=== PATIENT | female | born 1990 | race Caucasian/White ===

== ENCOUNTER 2018-06-06 23:26 | Inpatient (IN) | payer BC ==
[2018-06-06] MEDS: Lactated Ringers 1,000 ML IV SCH (23:20)
[2018-06-06] MEDS ORDERED: Sodium Chloride 0.9% 2.5 ML Syringe FLUSH PRN ×2 (23:36→23:39)
[2018-06-06] MEDS ORDERED: Sodium Chloride 0.9% 10 ML Syringe FLUSH PRN ×2 (23:36→23:39)
[2018-06-06] MEDS ORDERED: Ondansetron 4 MG/2 ML SDV IVPUSH PRN (23:39)
[2018-06-06] MEDS ORDERED: Citric Acid/Sodium Citrate Solution 30 ML Cup PO ONE (23:39)
[2018-06-06] MEDS ORDERED: ceFAZolin 2 GM in Premix Bag 1 BAG IV ONE (23:39)
--- NOTE | 2018-06-06 23:41 | PCM.PREANE ---
Preanesthetic Assessment - Anesthesia/Transfusion/Family Hx Anesthesia History: Prior Anesthesia Without Reaction Family History of Anesthesia Reaction: No - Review of Systems General: No Symptoms Pulmonary: No Symptoms Cardiovascular: No Symptoms Gastrointestinal: No Symptoms Neurological: No Symptoms Other: Reports: None - Physical Assessment ASA Class: 2E Mental Status: Alert & Oriented x3 Airway Class: Mallampati = 2 Dentition: Reports: Normal Dentition Thyro-Mental Finger Breadths: 3 Mouth Opening Finger Breadths: 3 ROM/Head Extension: Full Lungs: Clear to Auscultation, Normal Respiratory Effort Cardiovascular: Regular Rate, Regular Rhythm - Allergies Allergies/Adverse Reactions: Allergies Allergy/AdvReac Type Severity Reaction Status Date / Time No Known Allergies Allergy Verified 07/22/14 17:15 - Acknowledgements Anesthesia Type Planned: Spinal (with Duramorph) Pt an Appropriate Candidate for the Planned Anesthesia: Yes Alternatives and Risks of Anesthesia Discussed w Pt/Guardian: Yes Pt/Guardian Understands and Agrees with Anesthesia Plan: Yes PreAnesthesia Questionnaire HEENT History: Reports: None Cardiovascular History: Reports: None Respiratory History: Reports: None Gastrointestinal History: Reports: GERD Genitourinary History: Reports: None 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: : 3 Para: 2 LMP (Approximate): Musculoskeletal History: Reports: None Neurological History: Reports: None Psychiatric History: Reports: None Hematologic History: Reports: None Immunologic History: Reports: None Oncologic (Cancer) History: Reports: None Dermatologic History: Reports: None - Infectious Disease History Infectious Disease History: Reports: None - Past Surgical History Female Surgical History: Reports: Section (x2 previous) - HOME MEDS Home Medications: Home Meds Acetaminophen/oxyCODONE [Percocet 325-5 MG] 1 tab PO Q4H PRN #1 tablet 07/25/14 [Rx] Docusate Sodium [Colace] 100 mg PO BID #1 cap 07/25/14 [Rx] Lanolin [Lansinoh HPA] 1 g TOP ASDIRECTED PRN #1 crm 07/25/14 [Rx] - CURRENT (IN HOUSE) MEDS Current Meds: Current Medications Lactated Ringer's (Ringers, Lactated) 1,000 mls @ 500 mls/hr IV BOLUS SHRUTI Sodium Chloride (Saline Flush) 10 ml FLUSH ASDIRECTED PRN PRN Reason: Keep Vein Open Sodium Chloride (Saline Flush) 2.5 ml FLUSH ASDIRECTED PRN PRN Reason: Keep Vein Open
[2018-06-06] MEDS ORDERED: Oxytocin/0.9 % Sodium Chloride 30 UNIT/500 ML BAG IV SCH (23:45)
[2018-06-06] MEDS ORDERED: Lactated Ringers 1,000 ML IV SCH (23:45)
[2018-06-07] MEDS: Lactated Ringers 1,000 ML IV SCH (00:12)
[2018-06-07] MEDS ORDERED: Nalbuphine 10 MG/1 ML Vial IVPUSH PRN (03:04)
[2018-06-07] MEDS ORDERED: diphenhydrAMINE 50 MG/ML SDV IVPUSH PRN (03:04)
[2018-06-07] MEDS ORDERED: Naloxone 0.4 MG/ML Syringe IVPUSH PRN (03:04)
--- NOTE | 2018-06-07 03:22 | PCM.POSTAN ---
POST ANESTHESIA ASSESSMENT - MENTAL STATUS Mental Status: Alert, Oriented - RESPIRATORY Respiratory Status: Respiratory Rate WNL, Airway Patent, O2 Saturation Stable - CARDIOVASCULAR CV Status: Pulse Rate WNL, Blood Pressure Stable - GASTROINTESTINAL GI Status: No Symptoms - POST OP HYDRATION Hydration Status: Adequate & Stable
--- NOTE | 2018-06-07 04:13 | PCM.DEL ---
L & D Note - General Info Date of Service: 06/07/18 Mother's Due Date: 06/16/18 - Delivery Note Delivery Outcome: Livebirth Delivery Method: Repeat Presentation: Left Occiput Transverse (LOT) Nuchal Cord: Present Anesthesia Type: Spinal Episiotomy Type: None Laceration: None Placenta: Intact Cord: 3 Vessels Estimated Blood Loss: 1,000 Resuscitation Needed: Yes Score 1 min: 5 Score 5 min: 7 Delivery Comments (Free Text/Narrative):: Live male delivered at 132am 4/7 weight 3930g - General Info Date of Service: 06/07/18 - Patient Data Vitals - Most Recent: Last Vital Signs Temp 36.7 C 06/07/18 02:57 Pulse 74 06/07/18 03:47 Resp 12 06/07/18 03:47 BP 117/69 06/07/18 03:47 Pulse Ox 97 06/07/18 03:47 Weight - Most Recent: 108.409 kg I&O - Last 24 Hours: Intake & Output 06/06/18 06/06/18 06/07/18 14:59 22:59 06:59 Intake Total 1800 Output Total 1050 Balance 750 Lab Results Last 24 Hours: Laboratory Results - last 24 hr 06/06/18 06/06/18 Range/Units 23:50 23:50 WBC 15.56 H (4.0-11.0) K/uL RBC 4.35 (4.30-5.90) M/uL Hgb 13.1 (12.0-16.0) g/dL Hct 37.0 (36.0-46.0) % MCV 85.1 (80.0-98.0) fL MCH 30.1 (27.0-32.0) pg MCHC 35.4 (31.0-37.0) g/dL RDW Std Deviation 38.5 (28.0-62.0) fl RDW Coeff of Dinorah 13 (11.0-15.0) % Plt Count 234 (150-400) K/uL MPV 9.90 (7.40-12.00) fL Nucleated RBC % 0.0 /100WBC Nucleated RBCs # 0 K/uL Blood Type A POSITIVE Antibody Screen NEGATIVE Med Orders - Current: Current Medications Diphenhydramine HCl (Benadryl) 25 mg IVPUSH Q4H PRN PRN Reason: Itching Stop: 06/08/18 03:05 Lactated Ringer's (Ringers, Lactated) 1,000 mls @ 500 mls/hr IV BOLUS SHRUTI Last Admin: 06/07/18 00:12 Dose: 500 mls/hr Lactated Ringer's (Ringers, Lactated) 1,000 mls @ 500 mls/hr IV BOLUS SHRUTI Oxytocin/Sodium Chloride (Oxytocin 30 Unit/500 Ml-Ns) 30 unit in 500 mls @ 250 mls/hr IV TITRATE SHRUTI Nalbuphine HCl (Nubain) 5 mg IVPUSH Q3H PRN PRN Reason: Pruritis Stop: 06/08/18 03:05 Naloxone HCl (Narcan) 0.1 mg IVPUSH ONETIME PRN PRN Reason: Respiratory Depression Stop: 06/08/18 03:05 Ondansetron HCl (Zofran) 4 mg IVPUSH Q4H PRN PRN Reason: Nausea/Vomiting Sodium Chloride (Saline Flush) 10 ml FLUSH ASDIRECTED PRN PRN Reason: Keep Vein Open Sodium Chloride (Saline Flush) 2.5 ml FLUSH ASDIRECTED PRN PRN Reason: Keep Vein Open Discontinued Medications Citric Acid/Sodium Citrate (Bicitra Solution) 30 ml PO ONETIME ONE Stop: 06/06/18 23:40 Cefazolin Sodium/Dextrose 2 gm (/ Premix) 50 mls @ 100 mls/hr IV ONETIME ONE Stop: 06/07/18 00:08 Sodium Chloride (Saline Flush) 10 ml FLUSH ASDIRECTED PRN PRN Reason: Keep Vein Open Sodium Chloride (Saline Flush) 2.5 ml FLUSH ASDIRECTED PRN PRN Reason: Keep Vein Open - Problem List & Annotations (1) delivery delivered SNOMED Code(s): 281914362 Code(s): O82 - ENCOUNTER FOR DELIVERY WITHOUT INDICATION Status: Acute Current Visit: No - Problem List Review Problem List Initiated/Reviewed/Updated: Yes - My Orders Last 24 Hours: My Active Orders 06/06/18 23:39 Patient Status [ADT] Routine Up ad Umm [RC] ASDIRECTED Vital Signs [RC] PER UNIT ROUTINE Ondansetron [Zofran] 4 mg IVPUSH Q4H PRN Peripheral IV Insertion Adult [OM.PC] Routine Schedule Procedure [COMM] Per Unit Routine Resuscitation Status Routine 06/06/18 23:40 Notify Provider Vital Signs [RC] PRN 06/06/18 23:45 Lactated Ringers [Ringers, Lactated] 1,000 ml IV BOLUS Oxytocin/0.9 % Sodium Chloride [Oxytocin 30 Unit/500 ML-NS] 30 unit in 500 ml IV TITRATE
[2018-06-07] MEDS ORDERED: Bisacodyl 10 MG Supp RECTAL PRN (04:17)
[2018-06-07] MEDS ORDERED: Acetaminophen/oxyCODONE 325-5 MG Tab PO PRN (04:17)
[2018-06-07] MEDS ORDERED: Ondansetron 4 MG/2 ML SDV IVPUSH PRN (04:17)
[2018-06-07] MEDS ORDERED: Lanolin 100% Cream 7 GM Tube TOP PRN (04:17)
--- NOTE | 2018-06-07 04:17 | PCM.OPNOTE ---
- General Post-Op/Procedure Note Date of Surgery/Procedure: 06/07/18 Operative Procedure(s): Tertiary lower segment Findings: Live male delivered at 132am, via vacuum , 4/7 . weight 3930 gram Dense adhesion between fascia , bladder and uterus . Pre Op Diagnosis: Previous @ 38w5d in labor Post-Op Diagnosis: same Anesthesia Technique: Spinal Primary Surgeon: Noheim Ford Fluid Replacement, Intraop: 3,000 Output, Urine Amount: 450 EBL in mLs: 1,000 Complications: None Condition: Good Free Text/Narrative:: Intake & Output 06/06/18 06/06/18 06/07/18 14:59 22:59 06:59 Intake Total 1800 Output Total 1050 Balance 750
[2018-06-07] MEDS ORDERED: Lactated Ringers 1,000 ML IV SCH (04:30)
[2018-06-07] MEDS: Ketorolac 30 MG/ML SDV IVPUSH SCH ×4 (05:03→23:33)
[2018-06-07] MEDS: diphenhydrAMINE 50 MG/ML SDV IVPUSH PRN ×2 (05:12→18:30)
--- NOTE | 2018-06-07 07:13 | PCM48HPAN ---
Post Anesthesia Note - EVALUATION WITHIN 48HRS OF ANESTHETIC Vital Signs in Normal Range: Yes Patient Participated in Evaluation: Yes Respiratory Function Stable: Yes Airway Patent: Yes Cardiovascular Function Stable: Yes Hydration Status Stable: Yes Pain Control Satisfactory: Yes Nausea and Vomiting Control Satisfactory: Yes Mental Status Recovered: Yes Resp Rate: 16
[2018-06-07] MEDS: Docusate Sodium 100 MG Cap PO SCH ×2 (14:11→21:16)
[2018-06-08] MEDS: Ketorolac 30 MG/ML SDV IVPUSH SCH (06:13)
--- NOTE | 2018-06-08 07:53 | PCM.PNPP ---
- General Info Date of Service: 06/08/18 Functional Status: Reports: Pain Controlled, Tolerating Diet, Ambulating. Denies: Urinating (Ward removed this am) - Review of Systems General: Denies: Fever, Malaise HEENT: Denies: Headaches Pulmonary: Denies: Shortness of Breath, Pleuritic Chest Pain Cardiovascular: Denies: Chest Pain, Palpitations, Dyspnea on Exertion Gastrointestinal: Denies: Abdominal Pain Genitourinary: Denies: Flank Pain - General Info Date of Service: 06/08/18 - Patient Data Vital Signs - Most Recent: Last Vital Signs Temp 36.3 C 06/08/18 04:12 Pulse 93 06/08/18 04:12 Resp 18 06/08/18 04:12 BP 134/67 06/08/18 04:12 Pulse Ox 96 06/08/18 04:12 Weight - Most Recent: 239 lb 0.015 oz Lab Results - Last 24 Hours: Laboratory Results - last 24 hr 06/08/18 Range/Units 05:05 Hgb 10.4 L (12.0-16.0) g/dL Hct 31.0 L (36.0-46.0) % Med Orders - Current: Current Medications Bisacodyl (Dulcolax) 10 mg RECTAL ONETIME PRN PRN Reason: Constipation Diphenhydramine HCl (Benadryl) 25 mg IVPUSH Q6H PRN PRN Reason: Itching or Nausea Last Admin: 06/07/18 18:30 Dose: 25 mg Docusate Sodium (Colace) 100 mg PO BID SHRUTI Last Admin: 06/07/18 21:16 Dose: 100 mg Emollient Ointment (Lansinoh Hpa) 0 gm TOP ASDIRECTED PRN PRN Reason: Sore Nipples Lactated Ringer's (Ringers, Lactated) 1,000 mls @ 500 mls/hr IV BOLUS SHRUTI Last Admin: 06/07/18 00:12 Dose: 500 mls/hr Lactated Ringer's (Ringers, Lactated) 1,000 mls @ 500 mls/hr IV BOLUS SHRUTI Oxytocin/Sodium Chloride (Oxytocin 30 Unit/500 Ml-Ns) 30 unit in 500 mls @ 250 mls/hr IV TITRATE SHRUTI Lactated Ringer's (Ringers, Lactated) 1,000 mls @ 125 mls/hr IV ASDIRECTED SHRUTI Ibuprofen (Motrin) 800 mg PO Q8H PRN PRN Reason: mild pain or fever Ondansetron HCl (Zofran) 4 mg IVPUSH Q4H PRN PRN Reason: Nausea/Vomiting Ondansetron HCl (Zofran) 4 mg IVPUSH Q4H PRN PRN Reason: Nausea/Vomiting Last Admin: 06/07/18 15:16 Dose: 4 mg Oxycodone/Acetaminophen (Percocet 325-5 Mg) 1 tab PO Q4H PRN PRN Reason: Pain (moderate 4-6) Oxycodone/Acetaminophen (Percocet 325-5 Mg) 2 tab PO Q4H PRN PRN Reason: Pain (moderate 4-6) Sodium Chloride (Saline Flush) 10 ml FLUSH ASDIRECTED PRN PRN Reason: Keep Vein Open Sodium Chloride (Saline Flush) 2.5 ml FLUSH ASDIRECTED PRN PRN Reason: Keep Vein Open Discontinued Medications Citric Acid/Sodium Citrate (Bicitra Solution) 30 ml PO ONETIME ONE Stop: 06/06/18 23:40 Diphenhydramine HCl (Benadryl) 25 mg IVPUSH Q4H PRN PRN Reason: Itching Stop: 06/08/18 03:05 Cefazolin Sodium/Dextrose 2 gm (/ Premix) 50 mls @ 100 mls/hr IV ONETIME ONE Stop: 06/07/18 00:08 Ketorolac Tromethamine (Toradol) 30 mg IVPUSH Q6H SHRUTI Stop: 06/08/18 04:31 Last Admin: 06/08/18 06:13 Dose: 30 mg Nalbuphine HCl (Nubain) 5 mg IVPUSH Q3H PRN PRN Reason: Pruritis Stop: 06/08/18 03:05 Last Admin: 06/07/18 11:16 Dose: 5 mg Naloxone HCl (Narcan) 0.1 mg IVPUSH ONETIME PRN PRN Reason: Respiratory Depression Stop: 06/08/18 03:05 Sodium Chloride (Saline Flush) 10 ml FLUSH ASDIRECTED PRN PRN Reason: Keep Vein Open Sodium Chloride (Saline Flush) 2.5 ml FLUSH ASDIRECTED PRN PRN Reason: Keep Vein Open - Infant Interaction Disposition, : Wallace to Nursery Infant Feeding: Continues to Breastfeed Support Person: - Recovery Exam Fundal Tone: Firm Fundal Level: 1 Fingerbreadths Below Umbilicus Fundal Placement: Midline Lochia Amount: Small Lochia Color: Rubra/Red Perineum Description: Intact, Minimal Bruising/Swelling Episiotomy/Laceration: None - Exam General: Alert Lungs: Clear to Auscultation, Normal Respiratory Effort Cardiovascular: Regular Rate, Regular Rhythm GI/Abdominal Exam: Normal Bowel Sounds, Soft, Non-Tender Extremities: Non-Tender, Pedal Edema Skin: Warm Wound/Incisions: Dressing Dry and Intact Psy/Mental Status: Alert, Normal Affect, Normal Mood - Problem List & Annotations (1) delivery delivered SNOMED Code(s): 550051250 Code(s): O82 - ENCOUNTER FOR DELIVERY WITHOUT INDICATION Status: Acute Current Visit: No - Problem List Review Problem List Initiated/Reviewed/Updated: Yes - Assessment Assessment:: POD#1 s/p RLTCS, doing well. Stable and afebrile - Plan Plan:: Continue current care Aim for discharge tomorrow
[2018-06-08] MEDS: Docusate Sodium 100 MG Cap PO SCH ×2 (09:00→20:01)
[2018-06-08] MEDS: Ibuprofen 800 MG Tab PO PRN (15:13)
[2018-06-08] MEDS: Acetaminophen/oxyCODONE 325-5 MG Tab PO PRN ×2 (15:14→19:51)
[2018-06-09] MEDS: Ibuprofen 800 MG Tab PO PRN ×2 (02:44→12:32)
[2018-06-09] MEDS: Acetaminophen/oxyCODONE 325-5 MG Tab PO PRN ×3 (02:44→12:33)
[2018-06-09 07:38] VITALS: BP 133/68
[2018-06-09] MEDS: Docusate Sodium 100 MG Cap PO SCH (08:26)
--- NOTE | 2018-06-09 09:16 | OR ---
SURGEON: NEIL WOLF DATE OF PROCEDURE: 06/07/2018 PREOPERATIVE DIAGNOSES: A 28-year-old 3, para 0, 0, 2, previous section x2, in labor for tertiary section. POSTOPERATIVE DIAGNOSES: A 28-year-old 3, para 0, 0, 2, previous section x2, in labor for tertiary section. PROCEDURE: Tertiary low transverse section. ESTIMATED BLOOD LOSS: 1000 IV FLUIDS: 3000 URINE OUTPUT: 450. FINDINGS: Severe dense adhesion between the rectus muscle to the fascia and the uterus. Live male , delivered at 0132 am. scores were 4 and 7. Weight was 3930 g. Thick meconium was noted. The was delivered with vacuum. BRIEF HISTORY ABOUT THE PATIENT: She is a patient who came in at 39 weeks and 5 days with contractions. She was examined. She was noted to be 1, 60, -2. She also had some bloody show. The patient was then counselled for for history of previous in active labor. She understood the risks, benefits, alternatives, and desired to proceed. DESCRIPTION OF PROCEDURE: The patient was taken to the operating room where spinal anesthesia was performed without difficulty. She was prepared and draped in the dorsal supine position with a leftward tilt. A Pfannenstiel skin incision was made with a scalpel and carried down to the fascia with the Bovie. The fascia was noted to be dense, thick, and was adhered to the underlying rectus muscle/ The fascia was incised and extended laterally, and the fascia was adhered to the rectus muscle, and the plane was not well defined, so gentle sharp dissection was done with the aid of the scalpel to dissect the layers to the peritoneum. . The bladder was stuck to the rectus muscles inferiorly, so we could not separate the plane there, so an attempt was then made to do a muscle-splitting procedure to better visualize the lower uterine segment. Lower uterine segment was then noted, the bladder was , and the bladder flap was then created. A lower uterine incision was made with the aid of the scapel. The uterine incision was extended manually up and downward with the finger and also with the bandage scissors. The was in cephalic position. The head was elevated to the level of the incision, and then there was some difficulty in delivering the head, so vacuum was placed at the flexion point, the baby was then delivered without difficulty, and thick meconium was noted. The cord was clamped and cut. The was handed over to the awaiting ballast inspector. The placenta was then delivered via massage of the uterine fundus. The uterine incision was noted and was repaired in one layer with 0 Vicryl. Then, some oozing points were noted, which were also sutured with 2-0 Vicryl. The rectus muscles were noted to be bleeding, and a continuous stitch was placed. Also, bladder base was noted to be oozing, so Surgicel was also placed. The rectus muscle was then apposed in the midline, and the fascia was then closed with PDS suture. The subcutaneous fat was also closed, and the skin was closed with 3-0 Monocryl on a Duane needle. All instrument and pad counts were correct x3. The patient tolerated the procedure well and was taken to the recovery room in stable condition. GARTH ALFARO /[id number]
--- NOTE | 2018-06-09 10:16 | PCM.PNPP ---
- General Info Date of Service: 06/09/18 Functional Status: Reports: Pain Controlled, Tolerating Diet, Ambulating, Urinating - Review of Systems General: Reports: No Symptoms HEENT: Reports: No Symptoms Pulmonary: Reports: No Symptoms Cardiovascular: Reports: No Symptoms Gastrointestinal: Reports: No Symptoms Genitourinary: Reports: No Symptoms Musculoskeletal: Reports: No Symptoms Skin: Reports: No Symptoms Neurological: Reports: No Symptoms Psychiatric: Reports: Agitation - General Info Date of Service: 06/09/18 - Patient Data Vital Signs - Most Recent: Last Vital Signs Temp 36.6 C 06/09/18 07:05 Pulse 93 06/09/18 07:05 Resp 18 06/09/18 07:05 BP 133/68 06/09/18 07:05 Pulse Ox 98 06/09/18 07:05 Weight - Most Recent: 108.409 kg Med Orders - Current: Current Medications Bisacodyl (Dulcolax) 10 mg RECTAL ONETIME PRN PRN Reason: Constipation Diphenhydramine HCl (Benadryl) 25 mg IVPUSH Q6H PRN PRN Reason: Itching or Nausea Last Admin: 06/07/18 18:30 Dose: 25 mg Docusate Sodium (Colace) 100 mg PO BID SHRUTI Last Admin: 06/09/18 08:26 Dose: 100 mg Emollient Ointment (Lansinoh Hpa) 0 gm TOP ASDIRECTED PRN PRN Reason: Sore Nipples Lactated Ringer's (Ringers, Lactated) 1,000 mls @ 500 mls/hr IV BOLUS SHRUTI Last Admin: 06/07/18 00:12 Dose: 500 mls/hr Lactated Ringer's (Ringers, Lactated) 1,000 mls @ 500 mls/hr IV BOLUS [facility] Oxytocin/Sodium Chloride (Oxytocin 30 Unit/500 Ml-Ns) 30 unit in 500 mls @ 250 mls/hr IV TITRATE SHRUTI Lactated Ringer's (Ringers, Lactated) 1,000 mls @ 125 mls/hr IV ASDIRECTED SHRUTI Ibuprofen (Motrin) 800 mg PO Q8H PRN PRN Reason: mild pain or fever Last Admin: 06/09/18 02:44 Dose: 800 mg Ondansetron HCl (Zofran) 4 mg IVPUSH Q4H PRN PRN Reason: Nausea/Vomiting Ondansetron HCl (Zofran) 4 mg IVPUSH Q4H PRN PRN Reason: Nausea/Vomiting Last Admin: 06/07/18 15:16 Dose: 4 mg Oxycodone/Acetaminophen (Percocet 325-5 Mg) 1 tab PO Q4H PRN PRN Reason: Pain (moderate 4-6) Last Admin: 06/09/18 08:26 Dose: 1 tab Oxycodone/Acetaminophen (Percocet 325-5 Mg) 2 tab PO Q4H PRN PRN Reason: Pain (moderate 4-6) Sodium Chloride (Saline Flush) 10 ml FLUSH ASDIRECTED PRN PRN Reason: Keep Vein Open Sodium Chloride (Saline Flush) 2.5 ml FLUSH ASDIRECTED PRN PRN Reason: Keep Vein Open Discontinued Medications Citric Acid/Sodium Citrate (Bicitra Solution) 30 ml PO ONETIME ONE Stop: 06/06/18 23:40 Diphenhydramine HCl (Benadryl) 25 mg IVPUSH Q4H PRN PRN Reason: Itching Stop: 06/08/18 03:05 Cefazolin Sodium/Dextrose 2 gm (/ Premix) 50 mls @ 100 mls/hr IV ONETIME ONE Stop: 06/07/18 00:08 Ketorolac Tromethamine (Toradol) 30 mg IVPUSH Q6H SHRUTI Stop: 06/08/18 04:31 Last Admin: 06/08/18 06:13 Dose: 30 mg Nalbuphine HCl (Nubain) 5 mg IVPUSH Q3H PRN PRN Reason: Pruritis Stop: 06/08/18 03:05 Last Admin: 06/07/18 11:16 Dose: 5 mg Naloxone HCl (Narcan) 0.1 mg IVPUSH ONETIME PRN PRN Reason: Respiratory Depression Stop: 06/08/18 03:05 Sodium Chloride (Saline Flush) 10 ml FLUSH ASDIRECTED PRN PRN Reason: Keep Vein Open Sodium Chloride (Saline Flush) 2.5 ml FLUSH ASDIRECTED PRN PRN Reason: Keep Vein Open - Infant Interaction Disposition, : to Nursery Feeding: Continues to Breastfeed Support Person: - Recovery Exam Fundal Tone: Firm Fundal Level: 1 Fingerbreadths Below Umbilicus Fundal Placement: Midline Lochia Amount: Small Lochia Color: Rubra/Red Perineum Description: Intact, Minimal Bruising/Swelling Episiotomy/Laceration: None Bladder Status: Nonpalpable, Voiding Urinary Elimination: Voided - Exam General: Alert HEENT: Pupils Equal Neck: Supple Lungs: Clear to Auscultation Cardiovascular: Regular Rate, Regular Rhythm GI/Abdominal Exam: Normal Bowel Sounds Extremities: Normal Inspection Wound/Incisions: Dressing Dry and Intact Neurological: No New Focal Deficit Psy/Mental Status: Alert - Problem List & Annotations (1) delivery delivered SNOMED Code(s): 706357091 Code(s): O82 - ENCOUNTER FOR DELIVERY WITHOUT INDICATION Status: Acute Current Visit: No - Problem List Review Problem List Initiated/Reviewed/Updated: Yes - My Orders Last 24 Hours: My Active Orders 06/08/18 10:30 Ibuprofen [Motrin] 800 mg PO Q8H PRN - Assessment Assessment:: POD#2 s/p RLTCS, doing well. Stable and afebrile - Plan Plan:: Discharge home
== END 2018-06-09 15:15 | disposition home or self-care (01) | DRG 540 ==
LOC: MW.OB 23:26 → OBSVTOIN 23:39 → MW.OB 06-07 12:11
PROVIDERS: ADMIT Obstetrics & Gynecology; ATTEND Obstetrics & Gynecology
PROC: 10D00Z1 Extraction of Products of Conception, Low, Open Approach (ICD-10-PCS; principal; 2018-06-06)
DX: O34.211 Maternal care for low transverse scar from previous cesarean delivery (principal); N85.8 Other specified noninflammatory disorders of uterus; Z3A.39 39 weeks gestation of pregnancy; Z37.0 Single live birth
CPT/HCPCS: 01961; 36415; 59025; 85014; 85018; 85027; 86850; 86900; 86901; A9270-GY; J1200; J1885; J2300; J2405; J7120

== ENCOUNTER 2018-06-22 20:46 | Observation (INO) | payer BC ==
[2018-06-22] MEDS ORDERED: Sodium Chloride 0.9% 2.5 ML Syringe FLUSH PRN (21:33)
[2018-06-22] MEDS ORDERED: Sodium Chloride 0.9% 10 ML Syringe FLUSH PRN (21:33)
--- NOTE | 2018-06-22 21:38 | EDM.PDOC ---
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 Cordero and initially did well and last Tuesday, 8 days ago the wound started opening up and her provider put several stitches in and she is due to have the sutures removed tomorrow. The patient had noticed some drainage and redness from the area and re-presented to the clinic on Tuesday, 3 days ago, and had a wound culture performed which she was notified was positive for strep. She was seen in the clinic on Tuesday and evaluated by the PA and was placed on Keflex which she has completed 2 days of. On Tuesday she did have a temperature of 101 she has not had a fever since that time. The patient said she has noted the persistent redness in the lower abdominal area around the incision but there have been no drainage until tonight at about 6:30 and she was walking in from her car and felt this gush of fluid. It was bloody fluid but it was not bright red and she has had continued drainage since that time. She has pain all throughout the area but has no upper abdominal pain and she's had no fevers since the one time on Tuesday. She's had no nausea or vomiting no diarrhea no shortness of breath or chest pain. She is only having minimal vaginal lochia. The patient is breast-feeding and has had no breast pain or issues with that and the baby is feeding well. She has contacted Dr. Mart who is on-call and was advised to come here. Review of systems: As per history of present illness and below otherwise all systems reviewed and negative. Past medical history: As per history of present illness and as reviewed below otherwise noncontributory. Surgical history: As per history of present illness and as reviewed below otherwise noncontributory. Social history: No reported history of drug or alcohol abuse. Family history: As per history of present illness and as reviewed below otherwise noncontributory. Physical exam: General: Well-developed well-nourished overweight female who is nontoxic and vital signs are noted by me. She is in some distress when she lays perfectly in the supine position and moves slowly due to discomfort. HEENT: Atraumatic, normocephalic, negative for conjunctival pallor or scleral icterus, mucous membranes moist, throat clear, neck supple, nontender, trachea midline. Lungs: Clear to auscultation, breath sounds equal bilaterally, chest nontender. Heart: S1S2, regular rate and rhythm no overt murmurs Abdomen: Soft, nondistended, normoactive bowel sounds Negative for masses or hepatosplenomegaly. The patient has a Pfannenstiel incision and at the midpoint where the patient says the sutures were placed by her provider, there is active draining of serosanguineous darker colored fluid also has a pale Rust component to it. There is surrounding induration and erythema extending upward several centimeters towards the umbilicus as well as inferiorly to a lesser degree. There is induration appreciated in the midline and extending outward and there is discrete tenderness in this region. There is warmth to this area as well. Pelvis: Stable nontender. Genitourinary: Deferred. Rectal: Deferred. Extremities: Atraumatic, negative for cords or calf pain. Neurovascular unremarkable. Neuro: Awake, alert, oriented. Cranial nerves II through XII unremarkable. Cerebellum unremarkable. Motor and sensory unremarkable throughout. Exam nonfocal. Diagnostics: CBC CMP CT scan of the abdomen and pelvis Therapeutics: Saline lock IV fluids morphine 2144: Case was discussed with Dr. Mart who would like a CT scan performed and to be recontacted to evaluate the extent of this fluid collection. She agrees that morphine would be acceptable and that the patient does not need to pump and discard with this medication for pain management. 2322: This was discussed with Dr. mart who will come to the ED and evaluate the patient for care plan 2355: Dr Mart is here in the ED and is evaluated the patient and would like a dose of clindamycin to be given and have the patient admitted as an observation. Impression: Postoperative hematoma/infection Definitive disposition and diagnosis as appropriate pending reevaluation and review of above. 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: Musculoskeletal History: Reports: None Neurological History: Reports: None Psychiatric History: Reports: None Endocrine/Metabolic History: Reports: None Hematologic History: Reports: None Immunologic History: Reports: None Oncologic (Cancer) History: Reports: None Dermatologic History: Reports: None - Infectious Disease History Infectious Disease History: Reports: None - Past Surgical History Head Surgeries/Procedures: Reports: None HEENT Surgical History: Reports: Adenoidectomy, Myringotomy w Tube(s), Naso- Sinus Surgery, Tonsillectomy Female Surgical History: Reports: Section Social & Family History - Family History Family Medical History: Noncontributory HEENT: Reports: None GI: Reports: None : Reports: None OBGYN: Reports: None Musculoskeletal: Reports: None Neurological: Reports: None Psychiatric: Reports: None Hematologic: Reports: None Immunologic: Reports: None Dermatologic: Reports: None - Tobacco Use Smoking Status *Q: Never Smoker - Caffeine Use Caffeine Use: Reports: None - Recreational Drug Use Recreational Drug Use: No ED ROS GENERAL - Review of Systems Review Of Systems: ROS reveals no pertinent complaints other than HPI. ED EXAM, GENERAL - Physical Exam Exam: See Below (See dictation) Course - Vital Signs Last Recorded V/S: Last Vital Signs Temp 37.0 C 06/22/18 21:18 Pulse 91 06/22/18 23:18 Resp 18 06/22/18 23:18 BP 120/56 L 06/22/18 23:18 Pulse Ox 97 06/22/18 23:18 - Orders/Labs/Meds Orders: Active Orders 24 hr Category Date Time Status Notify Provider Consults [RC] ASDIRECTED Care 06/22/18 23:23 Active Consult to Physician [CONS] Stat Cons 06/22/18 23:23 Active Sodium Chloride 0.9% [Saline Flush] Med 06/22/18 21:33 Active 10 ml FLUSH ASDIRECTED PRN Sodium Chloride 0.9% [Saline Flush] Med 06/22/18 21:33 Active 2.5 ml FLUSH ASDIRECTED PRN Saline Lock Insert [OM.PC] Stat Oth 06/22/18 21:33 Ordered Medication Orders Sodium Chloride (Saline Flush) 10 ml FLUSH ASDIRECTED PRN PRN Reason: Keep Vein Open Sodium Chloride (Saline Flush) 2.5 ml FLUSH ASDIRECTED PRN PRN Reason: Keep Vein Open Labs: Laboratory Tests 06/22/18 06/22/18 Range/Units 21:45 21:45 WBC 15.91 H (4.0-11.0) K/uL RBC 4.07 L (4.30-5.90) M/uL Hgb 11.8 L (12.0-16.0) g/dL Hct 35.1 L (36.0-46.0) % MCV 86.2 (80.0-98.0) fL MCH 29.0 (27.0-32.0) pg MCHC 33.6 (31.0-37.0) g/dL RDW Std Deviation 39.3 (28.0-62.0) fl RDW Coeff of Dinorah 12 (11.0-15.0) % Plt Count 390 (150-400) K/uL MPV 8.80 (7.40-12.00) fL Neut % (Auto) 69.5 (48.0-80.0) % Lymph % (Auto) 23.0 (16.0-40.0) % [place] % (Auto) 6.0 (0.0-15.0) % Eos % (Auto) 1.3 (0.0-7.0) % Baso % (Auto) 0.2 (0.0-1.5) % Neut # (Auto) 11.1 H (1.4-5.7) K/uL Lymph # (Auto) 3.7 H (0.6-2.4) K/uL [place] # (Auto) 1.0 H (0.0-0.8) K/uL Eos # (Auto) 0.2 (0.0-0.7) K/uL Baso # (Auto) 0.0 (0.0-0.1) K/uL Nucleated RBC % 0.0 /100WBC Nucleated RBCs # 0 K/uL Sodium 140 (136-145) mmol/L Potassium 3.9 (3.5-5.1) mmol/L Chloride 105 (98-107) mmol/L Carbon Dioxide 24.0 (21.0-32.0) mmol/L BUN 10 (7.0-18.0) mg/dL Creatinine 0.6 (0.6-1.0) mg/dL Est Cr Clr Drug Dosing 126.73 mL/min Estimated GFR (MDRD) > 60.0 ml/min Glucose 91 (74-106) mg/dL Calcium 8.4 L (8.5-10.1) mg/dL Total Bilirubin 0.3 (0.2-1.0) mg/dL AST 22 (15-37) IU/L ALT 28 (14-63) IU/L Alkaline Phosphatase 87 (46-116) U/L Total Protein 6.9 (6.4-8.2) g/dL Albumin 2.7 L (3.4-5.0) g/dL Globulin 4.2 H (2.6-4.0) g/dL Albumin/Globulin Ratio 0.6 L (0.9-1.6) Meds: Medications Generic Name Dose Route Start Last Admin Trade Name Freq PRN Reason Stop Dose Admin Sodium Chloride 10 ml 06/22/18 21:33 Saline Flush FLUSH ASDIRECTED PRN Keep Vein Open Sodium Chloride 2.5 ml 06/22/18 21:33 Saline Flush FLUSH ASDIRECTED PRN Keep Vein Open Discontinued Medications Generic Name Dose Route Start Last Admin Trade Name Freq PRN Reason Stop Dose Admin Sodium Chloride 1,000 mls @ 999 mls/hr 06/22/18 21:46 06/22/18 21:50 Normal Saline IV 06/22/18 22:46 999 mls/hr STAT ONE Administration Iopamidol 100 ml 06/22/18 22:39 06/22/18 22:39 Isovue Multipack-370 (76%) IVPUSH 06/22/18 22:40 100 ml ONETIME STA Administration Morphine Sulfate 4 mg 06/22/18 21:46 06/22/18 21:51 Morphine IVPUSH 06/22/18 21:47 4 mg ONETIME ONE Administration Departure - Departure Time of Disposition: 23:59 Disposition: Refer to Observation Condition: Good Clinical Impression: Post-operative infection, Postoperative hematoma - Discharge Information Referrals: Reinaldo Hdz MD [Primary Care Provider] - Forms: ED Department Discharge - My Orders Last 24 Hours: My Active Orders 06/22/18 21:33 Sodium Chloride 0.9% [Saline Flush] 10 ml FLUSH ASDIRECTED PRN Sodium Chloride 0.9% [Saline Flush] 2.5 ml FLUSH ASDIRECTED PRN Saline Lock Insert [OM.PC] Stat 06/22/18 23:23 Notify Provider Consults [RC] ASDIRECTED Consult to Physician [CONS] Stat - Assessment/Plan Last 24 Hours: My Active Orders 06/22/18 21:33 Sodium Chloride 0.9% [Saline Flush] 10 ml FLUSH ASDIRECTED PRN Sodium Chloride 0.9% [Saline Flush] 2.5 ml FLUSH ASDIRECTED PRN Saline Lock Insert [OM.PC] Stat 06/22/18 23:23 Notify Provider Consults [RC] ASDIRECTED Consult to Physician [CONS] Stat
[2018-06-22] MEDS ORDERED: Sodium Chloride 0.9% 1,000 ML IV ONE (21:46)
[2018-06-22] MEDS ORDERED: Morphine 2 MG/ML Syringe IVPUSH ONE (21:46)
[2018-06-22 22:27] LABS: CHLORIDE,CL 105 mmol/L (98-107); SODIUM,NA 140 mmol/L (136-145)
[2018-06-22] MEDS ORDERED: Iopamidol 755 MG/ML 500 ML Multipack Bottle IVPUSH STA (22:39)
--- NOTE | 2018-06-22 23:13 | CT ---
INDICATION: Status post section, possible abscess. TECHNIQUE: CT abdomen and pelvis acquired with 100 cc Isovue 370 intravenous contrast. COMPARISON: None. FINDINGS: Lower chest: 3 millimeter noncalcified pulmonary nodule right lower lobe (201, 5). Liver: Unremarkable. Normal in size and attenuation. No masses. Gallbladder and bile ducts: Unremarkable. No stones or inflammation. No biliary dilatation. Pancreas: Unremarkable. No mass or inflammation. Spleen: Mild splenomegaly. This is likely related to the recent status. Adrenal glands: Unremarkable. No nodules. Kidneys: Unremarkable. No masses, stones, or hydronephrosis. GI tract: The stomach is unremarkable. There are no dilated loops of large or small intestine. Unremarkable appendix. Vasculature: Unremarkable. Omentum/Peritoneum/Abdominal Wall: There is a mild concavity at the skin surface at the lower pelvis consistent with a recent history of section. There is anterior skin thickening as well as mild infiltration of the anterior subcutaneous fat. There is a slightly more amorphous linear tract of fluid which extends from the lower incision line to the lower abdominal musculature. At this level there is a somewhat irregular hypoechoic intramuscular area measuring 4.6 x 1.2 x 3.4 centimeters (201, 120; 204, 74) which appears to communicate with the amorphous subcutaneous fluid (204, 84). The musculature is expanded at this level with mild adjacent fat stranding. Pelvis: The bladder is moderately distended and the uterus is enlarged consistent with the recent status. Trace free fluid adjacent to the uterus anteriorly as well as in the anterior extraperitoneal space although without a significant intra-abdominal hematoma. Bones: Unremarkable for age. IMPRESSION: 1. Anterior abdominal skin thickening with fat stranding, amorphous subcutaneous fluid extending to the musculature with some expansion of the lower rectus abdominal musculature and irregular hypoechoic area intramuscular measuring 4.6 x 1.2 x 3.4 centimeters. In the subacute postoperative setting, this could merely represent postoperative edema with a postoperative seroma in the subcutaneous tissues and the intramuscular fluid representing an intramuscular seroma or evolving hematoma. However, with the clinical question of infection, differential diagnosis would also include phlegmonous subcutaneous fluid extending into the abdominal wall. 2. Right lower lobe pulmonary nodule measuring 3 millimeters. In a low risk patient, no further follow-up is required. In a high-risk patient, follow-up chest CT recommended in 12 months. Please note that all CT scans at this facility use dose modulation, iterative reconstruction, and/or weight-based dosing when appropriate to reduce radiation dose to as low as reasonably achievable. Dictated by Leonel Tarango MD @ Jun 22 2018 11:01PM Signed by Dr. Leonel Tarango @ Jun 22 2018 11:12PM
[2018-06-22] MEDS ORDERED: Morphine 4 MG/ML Syringe IVPUSH PRN (23:54)
[2018-06-23] MEDS: Clindamycin Phosphate in D5W 900 MG in Premix Bag 1 BAG IV SCH ×6 (00:16→16:14)
--- NOTE | 2018-06-23 00:49 | HP ---
DATE OF : 1990 PRIMARY CARE PHYSICIAN: Reinaldo Hdz MD CHIEF COMPLAINT: Discharge from wound. HISTORY OF PRESENT ILLNESS: This is a 28-year-old female. She is postop day #17 from a repeat low- transverse section. Her initial postoperative course was fairly normal. The patient states that the , however, was prolonged requiring a general anesthetic due to adhesions and scar tissue related to her prior C- section. She has been seen in the clinic by Dr. Ford and Jacquelyn Casanova PA-C, over the past week. An additional stitch was placed in the incision and she has been placed on oral antibiotics. Tonight when she was standing, the wound began to drain copiously with a bloody drainage. She denies any fever or chills. Pain is moderate. She has just been taking Motrin in the evenings. She presented to the emergency room where she was initially evaluated by Dr. Carmen. She concurred that the drainage was copious and I had her proceed with CT which showed a large hematoma, but the fascia to be intact. The patient is currently . PAST MEDICAL HISTORY: Negative for chronic illness. PAST SURGICAL HISTORY: 1. Three sections. 2. Myringotomy tubes. 3. Septoplasty. 4. Tonsillectomy. ALLERGIES: None known. However, she notes that she had a rash over her lower abdomen following the placement of the sutures in the clinic. She is not sure if this was from the lidocaine or Betadine. CURRENT MEDICATIONS: 1. Keflex 500 mg q.i.d. 2. vitamins. SOCIAL HISTORY: She is , sexually active. She denies use of tobacco, alcohol, or street drugs. FAMILY HISTORY: Negative for any complications related to anesthesia or other pertinent history. REVIEW OF SYSTEMS: Negative for headache or visual changes. Negative for shortness of breath, chest pain. Negative for musculoskeletal. Negative for gastrointestinal. Positive for the rash as noted above. However, this rash resolved over several days. PHYSICAL EXAMINATION: VITAL SIGNS: Temperature is 37.0, blood pressure is 126/87, pulse is 99, respiratory rate of 18, oxygen saturation is 98%. GENERAL: She is alert and oriented. She is currently in no acute distress, although she is concerned about the drainage. NECK: Supple without lymphadenopathy or thyromegaly. LUNGS: Clear bilaterally. CARDIOVASCULAR: Regular rate without murmur. ABDOMEN: Soft. There is a half-anguiano shaped area of erythema above the incision. At the midline of the incision, there is a watery red discharge. The patient will not allow me to examine the incision well due to discomfort. EXTREMITIES: Show trace edema. ASSESSMENT AND PLAN: A 28-year-old female, postop day #17 from a delivery with complicated hematoma. She has had a positive culture in the clinic for group A strep and has been placed on Keflex. Due to the redness and tenderness, I would like to place her on clindamycin as well to protect from potential strep A toxins. She will be admitted with IV ampicillin, gentamicin, and clindamycin, and she will be made n.p.o. at the appropriate time, so that surgical evaluation can be performed in the morning if needed. CT shows the fascia to be intact. No evidence of wound dehiscence. RONEY / DOMINIC /[id number]
[2018-06-23] MEDS: Lactated Ringers 1,000 ML IV SCH ×3 (00:55→19:34)
[2018-06-23] MEDS: Ampicillin 2 GM in Sodium Chloride 0.9% 100 ML IV SCH ×5 (02:03→23:50)
[2018-06-23] MEDS: Ketorolac 30 MG/ML SDV IVPUSH PRN (03:34)
[2018-06-23] MEDS ORDERED: Promethazine 25 MG/ML SDV IM ONE ×2 (09:01→20:05)
[2018-06-23] MEDS ORDERED: Meperidine PF 50 MG/ML Syringe IVPUSH ONE ×2 (09:03→20:04)
--- NOTE | 2018-06-23 19:33 | PCM.SN ---
- Free Text/Narrative Note: 28 yo P3 s/p Tertiary done on 06/07 , POD 16 admitted for wound hematoma. She states she had some moderate amount of disharge from her wound. Patient has been seen twice in the clinic post operative intially due to seperation of wound , then for discharge. She had a wound culture which showed group a streptococcus. Patient denies any fever , bowel or urinary symptoms Patient had ct scan done which showed subcutaneous fliud measuring 4.6 X 1.2 X 3.4cm extending to the lower rectus muscles. Exam; General: NAD Chest: CTA BL CVS: S1 s2 no murmurs Abdomen: Pfannestiel skin incision with wound seperation 1cm stitch noted and removed . Probed with abundant darkish red fluid from the wound , not foul smelling cultures taken and packed with plan 1/4 packing Slight erythema around wound VSS: 119/58 , HR: 78 WBC: 15.9 -- 10.2 ImP 28 yo P3 s/p Tertiary , POD 16 with wound hemotoma , on Amp, gentamicin and clinda. s/p wound packing Plan Daily CBC Twice daily dressing Continue antibiotics If drainage not improve will have to r/o fascia dehiscence Patient will be sign off to Dr Read for the weekend . Johanna
[2018-06-23] MEDS ORDERED: Metoclopramide 10 MG Tab PO PRN (19:41)
[2018-06-23] MEDS ORDERED: Gentamicin 40 MG/ML 2 ML Vial IV SCH (20:00)
[2018-06-23] MEDS ORDERED: Promethazine 25 MG/ML SDV ONE (20:17)
[2018-06-24] MEDS: Clindamycin Phosphate in D5W 900 MG in Premix Bag 1 BAG IV SCH ×6 (00:53→17:08)
[2018-06-24] MEDS: Lactated Ringers 1,000 ML IV SCH ×2 (04:34→16:16)
[2018-06-24] MEDS: Ampicillin 2 GM in Sodium Chloride 0.9% 100 ML IV SCH ×3 (05:14→17:46)
[2018-06-24] MEDS: Ketorolac 30 MG/ML SDV IVPUSH PRN (11:20)
--- NOTE | 2018-06-24 12:14 | PCM.SURGPN ---
- General Info Date of Service: 06/24/18 POD#: other (17) Admission Diagnosis/Problem: Hematoma Functional Status: Reports: Pain Controlled, Tolerating Diet, Ambulating, Urinating - Review of Systems General: Denies: Fever, Weakness, Fatigue Pulmonary: Reports: No Symptoms Cardiovascular: Denies: Chest Pain, Palpitations, Lightheadedness Gastrointestinal: Reports: Abdominal Pain (incisional, but controlled overall with pain meds), Flatus. Denies: Nausea, Vomiting Genitourinary: Denies: Flank Pain Musculoskeletal: Reports: No Symptoms Skin: Reports: No Symptoms Neurological: Reports: No Symptoms Psychiatric: Reports: No Symptoms - Patient Data Vitals - Most Recent: Last Vital Signs Temp 36.8 C 06/24/18 04:00 Pulse 81 06/24/18 04:00 Resp 16 06/24/18 04:00 BP 121/68 06/24/18 04:00 Pulse Ox 97 06/24/18 04:00 Weight - Most Recent: 98.43 kg I&O - Last 24 Hours: Intake & Output 06/23/18 06/24/18 06/24/18 22:59 06:59 14:59 Intake Total 2182 2973 Output Total 1650 2300 Balance 532 673 Med Orders - Current: Current Medications Ampicillin Sodium 2 gm/ Sodium (Chloride) 100 mls @ 200 mls/hr IV Q6H [facility] Last Admin: 06/24/18 05:14 Dose: 200 mls/hr Clindamycin Phosphate 900 mg/ (Premix) 50 mls @ 100 mls/hr IV Q8H [facility] Last Admin: 06/24/18 08:29 Dose: 100 mls/hr Lactated Ringer's (Ringers, Lactated) 1,000 mls @ 125 mls/hr IV ASDIRECTED [facility] Last Admin: 06/24/18 04:34 Dose: 125 mls/hr Gentamicin Sulfate 80 mg/ (Sodium Chloride) 52 mls @ 104 mls/hr IV Q8H [facility] Last Admin: 06/24/18 11:33 Dose: 104 mls/hr Ketorolac Tromethamine (Toradol) 30 mg IVPUSH Q6H PRN PRN Reason: Pain Stop: 06/27/18 23:57 Last Admin: 06/24/18 11:20 Dose: 30 mg Metoclopramide HCl (Reglan) 10 mg PO Q6H PRN PRN Reason: Nausea/Vomiting Morphine Sulfate (Morphine Sulfate) 4 mg IV Q2H PRN PRN Reason: Abdominal Pain Oxycodone/Acetaminophen (Percocet 325-5 Mg) 1 - 2 tab PO Q6H PRN PRN Reason: Abdominal Pain Sodium Chloride (Saline Flush) 10 ml FLUSH ASDIRECTED PRN PRN Reason: Keep Vein Open Sodium Chloride (Saline Flush) 2.5 ml FLUSH ASDIRECTED PRN PRN Reason: Keep Vein Open Discontinued Medications Sodium Chloride (Normal Saline) 1,000 mls @ 999 mls/hr IV STAT ONE Stop: 06/22/18 22:46 Last Admin: 06/22/18 21:50 Dose: 999 mls/hr Iopamidol (Isovue Multipack-370 (76%)) 100 ml IVPUSH ONETIME STA Stop: 06/22/18 22:40 Last Admin: 06/22/18 22:39 Dose: 100 ml Meperidine HCl (Demerol) 75 mg IVPUSH ONETIME ONE Stop: 06/23/18 09:04 Last Admin: 06/23/18 09:20 Dose: 75 mg Meperidine HCl (Demerol) 75 mg IVPUSH ONETIME ONE Stop: 06/23/18 20:05 Last Admin: 06/23/18 20:20 Dose: 75 mg Morphine Sulfate (Morphine) 4 mg IVPUSH ONETIME ONE Stop: 06/22/18 21:47 Last Admin: 06/22/18 21:51 Dose: 4 mg Morphine Sulfate (Morphine) 4 mg IVPUSH Q2H PRN PRN Reason: Abdominal Pain Promethazine HCl (Phenergan) 25 mg IM ONETIME ONE Stop: 06/23/18 09:02 Last Admin: 06/23/18 09:22 Dose: 25 mg Promethazine HCl (Phenergan) 25 mg IM ONETIME ONE Stop: 06/23/18 20:06 Last Admin: 06/23/18 20:21 Dose: 25 mg Promethazine HCl (Phenergan) Confirm Administered Dose 25 mg .ROUTE .STK-MED ONE Stop: 06/23/18 20:18 Last Admin: 06/23/18 20:24 Dose: Not Given - Exam Wound/Incisions: Drainage (serosanguinous, small to moderate amount.Packing was removed, patient showered and then repacked after cleaning wound. The incision is ~10 mm in the midline and with palpation with Qtip, fascia palpates intact. Region of separation ~2-4 cm. Region irrigated, edges debrided and repacked with 1/4 " gauze. Patient tolerated well. ) General: Alert, Oriented Lungs: Normal Respiratory Effort Cardiovascular: Regular Rate, Regular Rhythm GI/Abdominal Exam: Normal Bowel Sounds, Soft, No Distention Extremities: Normal Inspection, Normal Range of Motion, Non-Tender, No Pedal Edema, Normal Capillary Refill Skin: Warm, Dry, Intact Neurological: No New Focal Deficit Psy/Mental Status: Alert, Normal Affect, Normal Mood - Problem List & Annotations (1) Postoperative hematoma SNOMED Code(s): 710193898 Code(s): [id number] - Status: Acute Current Visit: Yes - Problem List Review Problem List Initiated/Reviewed/Updated: Yes - My Orders Last 24 Hours: Active Orders 24 hr Category Date Time Status Communication Order [RC] PRN Care 06/24/18 08:52 Active Regular Diet [DIET] Diet 06/24/18 Breakfast Active CBC WITH MANUAL DIFF [HEME] Routine Lab 06/24/18 19:43 Ordered Acetaminophen/oxyCODONE [Percocet 325-5 MG] Med 06/23/18 19:40 Active 1 - 2 tab PO Q6H PRN Gentamicin 80 mg Med 06/23/18 20:00 Active Sodium Chloride 0.9% [Normal Saline] 50 ml IV Q8H Metoclopramide [Reglan] Med 06/23/18 19:41 Active 10 mg PO Q6H PRN Medication Orders Ampicillin Sodium 2 gm/ Sodium (Chloride) 100 mls @ 200 mls/hr IV Q6H [facility] Last Admin: 06/24/18 05:14 Dose: 200 mls/hr Infusion: 06/24/18 00:20 Dose: 200 mls/hr Admin: 06/23/18 23:50 Dose: 200 mls/hr Infusion: 06/23/18 18:50 Dose: 200 mls/hr Admin: 06/23/18 18:20 Dose: 200 mls/hr Infusion: 06/23/18 12:30 Dose: 200 mls/hr Admin: 06/23/18 12:00 Dose: 200 mls/hr Infusion: 06/23/18 07:08 Dose: 200 mls/hr Admin: 06/23/18 06:38 Dose: 200 mls/hr Infusion: 06/23/18 02:33 Dose: 200 mls/hr Admin: 06/23/18 02:03 Dose: 200 mls/hr Clindamycin Phosphate 900 mg/ (Premix) 50 mls @ 100 mls/hr IV Q8H [facility] Last Admin: 06/24/18 08:29 Dose: 100 mls/hr Infusion: 06/24/18 01:23 Dose: 100 mls/hr Admin: 06/24/18 00:53 Dose: 100 mls/hr Infusion: 06/23/18 16:44 Dose: 100 mls/hr Admin: 06/23/18 16:14 Dose: 100 mls/hr Infusion: 06/23/18 09:29 Dose: 100 mls/hr Admin: 06/23/18 08:59 Dose: 100 mls/hr Infusion: 06/23/18 00:46 Dose: 100 mls/hr Admin: 06/23/18 00:16 Dose: 100 mls/hr Lactated Ringer's (Ringers, Lactated) 1,000 mls @ 125 mls/hr IV ASDIRECTED [facility] Last Admin: 06/24/18 04:34 Dose: 125 mls/hr Infusion: 06/24/18 03:34 Dose: 125 mls/hr Admin: 06/23/18 19:34 Dose: 125 mls/hr Infusion: 06/23/18 18:08 Dose: 125 mls/hr Admin: 06/23/18 10:08 Dose: 125 mls/hr Infusion: 06/23/18 08:55 Dose: 125 mls/hr Admin: 06/23/18 00:55 Dose: 125 mls/hr Gentamicin Sulfate 80 mg/ (Sodium Chloride) 52 mls @ 104 mls/hr IV Q8H [facility] Last Admin: 06/24/18 11:33 Dose: 104 mls/hr Infusion: 06/24/18 05:04 Dose: 104 mls/hr Admin: 06/24/18 04:34 Dose: 104 mls/hr Infusion: 06/23/18 22:14 Dose: 104 mls/hr Admin: 06/23/18 21:44 Dose: 104 mls/hr Ketorolac Tromethamine (Toradol) 30 mg IVPUSH Q6H PRN PRN Reason: Pain Stop: 06/27/18 23:57 Last Admin: 06/24/18 11:20 Dose: 30 mg Admin: 06/23/18 03:34 Dose: 30 mg Metoclopramide HCl (Reglan) 10 mg PO Q6H PRN PRN Reason: Nausea/Vomiting Morphine Sulfate (Morphine Sulfate) 4 mg IV Q2H PRN PRN Reason: Abdominal Pain Oxycodone/Acetaminophen (Percocet 325-5 Mg) 1 - 2 tab PO Q6H PRN PRN Reason: Abdominal Pain Sodium Chloride (Saline Flush) 10 ml FLUSH ASDIRECTED PRN PRN Reason: Keep Vein Open Sodium Chloride (Saline Flush) 2.5 ml FLUSH ASDIRECTED PRN PRN Reason: Keep Vein Open - Assessment Assessment (Free Text/Narrative):: POD 17 status post repeat c section Postop Hematoma - Plan Plan (Free Text/Narrative):: There is no surrounding erythema today along incision. Drainage with repacking was about 10 mL and was serosanguinous. No malodor. Patient tolerated packing well. VS remain stable, normal white count on lab. Afebrile. Will monitor, but if remains stable, plan discharge with oral antibiotics and pain meds. Am going to do wound care teaching with sister in law to be able to continue packing at home. Patient is and concerned about baby wanting to latch if does not go home soon.
[2018-06-24] MEDS: Acetaminophen/oxyCODONE 325-5 MG Tab PO PRN ×2 (13:21→20:57)
--- NOTE | 2018-06-24 21:19 | PCM.SN ---
- Free Text/Narrative Note: Packing changed, patient tolerated well. Still a small amount of serosanguinous discharge present. The ecchymosis along the mons is regressing. Patient walked halls today and is feeling well.
[2018-06-25] MEDS: Ampicillin 2 GM in Sodium Chloride 0.9% 100 ML IV SCH ×3 (00:12→12:02)
[2018-06-25] MEDS: Clindamycin Phosphate in D5W 900 MG in Premix Bag 1 BAG IV SCH ×4 (01:11→08:17)
[2018-06-25] MEDS: Lactated Ringers 1,000 ML IV SCH (03:40)
[2018-06-25] MEDS: Acetaminophen/oxyCODONE 325-5 MG Tab PO PRN ×2 (03:40→12:25)
[2018-06-25 11:25] VITALS: BP 121/66
--- NOTE | 2018-06-25 12:52 | PCM.SURGPN ---
- General Info Date of Service: 06/25/18 POD#: other (18) Post-Op Diagnosis: Postoperative hematoma. Status post repeat c section x 3 Admission Diagnosis/Problem: Hematoma Functional Status: Reports: Pain Controlled, Tolerating Diet, Ambulating, Urinating - Review of Systems General: Denies: Fever, Weakness, Fatigue Pulmonary: Denies: Shortness of Breath Cardiovascular: Reports: No Symptoms Gastrointestinal: Reports: Flatus. Denies: Abdominal Pain, Nausea, Vomiting Genitourinary: Reports: No Symptoms Musculoskeletal: Reports: No Symptoms Skin: Reports: No Symptoms Neurological: Reports: No Symptoms Psychiatric: Reports: No Symptoms - Patient Data Vitals - Most Recent: Last Vital Signs Temp 36.3 C 06/25/18 11:00 Pulse 74 06/25/18 11:00 Resp 16 06/25/18 11:00 BP 121/66 06/25/18 11:00 Pulse Ox 98 06/25/18 11:00 Weight - Most Recent: 98.43 kg I&O - Last 24 Hours: Intake & Output 06/24/18 06/25/18 06/25/18 22:59 06:59 14:59 Intake Total 1500 1200 Output Total 650 Balance 850 1200 Lab Results Last 24 Hrs: Laboratory Results - last 24 hr 06/24/18 Range/Units 19:22 WBC 9.28 (4.0-11.0) K/uL RBC 3.80 L (4.30-5.90) M/uL Hgb 10.8 L (12.0-16.0) g/dL Hct 33.5 L (36.0-46.0) % MCV 88.2 (80.0-98.0) fL MCH 28.4 (27.0-32.0) pg MCHC 32.2 (31.0-37.0) g/dL RDW Std Deviation 40.0 (28.0-62.0) fl RDW Coeff of Dinorah 12 (11.0-15.0) % Plt Count 395 (150-400) K/uL MPV 8.90 (7.40-12.00) fL Neutrophils % (Manual) 34 L (48.0-80.0) % Band Neutrophils % 1 % Lymphocytes % (Manual) 53 H (16.0-40.0) % Monocytes % (Manual) 5 (0.0-15.0) % Eosinophils % (Manual) 7 (0.0-7.0) % Nucleated RBC % 0.0 /100WBC Absolute Seg Neuts 3.2 (1.4-5.7) Band Neutrophils # 0.1 Lymphocytes # (Manual) 4.9 H (0.6-2.4) Monocytes # (Manual) 0.5 (0.0-0.8) Eosinophils # (Manual) 0.6 (0.0-0.7) Wing Results Last 24 Hrs: Microbiology 06/23/18 09:30 Wound Culture - Final Other - Abdomen Enterococcus Faecalis Skin Dedra Med Orders - Current: Current Medications Ampicillin Sodium 2 gm/ Sodium (Chloride) 100 mls @ 200 mls/hr IV Q6H [facility] Last Admin: 06/25/18 12:02 Dose: 200 mls/hr Clindamycin Phosphate 900 mg/ (Premix) 50 mls @ 100 mls/hr IV Q8H [facility] Last Admin: 06/25/18 08:17 Dose: 100 mls/hr Lactated Ringer's (Ringers, Lactated) 1,000 mls @ 125 mls/hr IV ASDIRECTED [facility] Last Admin: 06/25/18 03:40 Dose: 125 mls/hr Gentamicin Sulfate 80 mg/ (Sodium Chloride) 52 mls @ 104 mls/hr IV Q8H [facility] Last Admin: 06/25/18 03:40 Dose: 104 mls/hr Ketorolac Tromethamine (Toradol) 30 mg IVPUSH Q6H PRN PRN Reason: Pain Stop: 06/27/18 23:57 Last Admin: 06/24/18 11:20 Dose: 30 mg Metoclopramide HCl (Reglan) 10 mg PO Q6H PRN PRN Reason: Nausea/Vomiting Morphine Sulfate (Morphine Sulfate) 4 mg IV Q2H PRN PRN Reason: Abdominal Pain Last Admin: 06/25/18 11:17 Dose: 4 mg Oxycodone/Acetaminophen (Percocet 325-5 Mg) 1 - 2 tab PO Q6H PRN PRN Reason: Abdominal Pain Last Admin: 06/25/18 12:25 Dose: 1 tab Sodium Chloride (Saline Flush) 10 ml FLUSH ASDIRECTED PRN PRN Reason: Keep Vein Open Sodium Chloride (Saline Flush) 2.5 ml FLUSH ASDIRECTED PRN PRN Reason: Keep Vein Open Discontinued Medications Sodium Chloride (Normal Saline) 1,000 mls @ 999 mls/hr IV STAT ONE Stop: 06/22/18 22:46 Last Admin: 06/22/18 21:50 Dose: 999 mls/hr Iopamidol (Isovue Multipack-370 (76%)) 100 ml IVPUSH ONETIME STA Stop: 06/22/18 22:40 Last Admin: 06/22/18 22:39 Dose: 100 ml Meperidine HCl (Demerol) 75 mg IVPUSH ONETIME ONE Stop: 06/23/18 09:04 Last Admin: 06/23/18 09:20 Dose: 75 mg Meperidine HCl (Demerol) 75 mg IVPUSH ONETIME ONE Stop: 06/23/18 20:05 Last Admin: 06/23/18 20:20 Dose: 75 mg Morphine Sulfate (Morphine) 4 mg IVPUSH ONETIME ONE Stop: 06/22/18 21:47 Last Admin: 06/22/18 21:51 Dose: 4 mg Morphine Sulfate (Morphine) 4 mg IVPUSH Q2H PRN PRN Reason: Abdominal Pain Promethazine HCl (Phenergan) 25 mg IM ONETIME ONE Stop: 06/23/18 09:02 Last Admin: 06/23/18 09:22 Dose: 25 mg Promethazine HCl (Phenergan) 25 mg IM ONETIME ONE Stop: 06/23/18 20:06 Last Admin: 06/23/18 20:21 Dose: 25 mg Promethazine HCl (Phenergan) Confirm Administered Dose 25 mg .ROUTE .STK-MED ONE Stop: 06/23/18 20:18 Last Admin: 06/23/18 20:24 Dose: Not Given - Exam Wound/Incisions: Healing Well, Drainage (small amount serosanguinous), Erythema Improving (basically resolved), Other (once again, packing removed, incision copiously irrigated and edges debrided. Replaced packing. Patient tolerated well. ) General: Alert, Oriented Lungs: Normal Respiratory Effort Cardiovascular: Regular Rate, Regular Rhythm GI/Abdominal Exam: Normal Bowel Sounds, Soft, Non-Tender, No Organomegaly, No Distention, No Mass Extremities: Pedal Edema (trace). No: Schuyler's Sign Skin: Warm, Dry, Intact Neurological: No New Focal Deficit Psy/Mental Status: Alert, Normal Affect, Normal Mood - Problem List & Annotations (1) Postoperative hematoma SNOMED Code(s): 590699348 Code(s): SEI7739 - Status: Acute Current Visit: Yes - Problem List Review Problem List Initiated/Reviewed/Updated: Yes - My Orders Last 24 Hours: Active Orders 24 hr Category Date Time Status Ready for Discharge [RC] PER UNIT ROUTINE Care 06/25/18 12:17 Active Medication Orders Ampicillin Sodium 2 gm/ Sodium (Chloride) 100 mls @ 200 mls/hr IV Q6H [facility] Admin: 06/25/18 12:02 Dose: 200 mls/hr Infusion: 06/25/18 06:45 Dose: 200 mls/hr Admin: 06/25/18 06:15 Dose: 200 mls/hr Infusion: 06/25/18 00:42 Dose: 200 mls/hr Admin: 06/25/18 00:12 Dose: 200 mls/hr Infusion: 06/24/18 18:16 Dose: 200 mls/hr Admin: 06/24/18 17:46 Dose: 200 mls/hr Infusion: 06/24/18 13:19 Dose: 200 mls/hr Admin: 06/24/18 12:49 Dose: 200 mls/hr Infusion: 06/24/18 05:44 Dose: 200 mls/hr Admin: 06/24/18 05:14 Dose: 200 mls/hr Infusion: 06/24/18 00:20 Dose: 200 mls/hr Admin: 06/23/18 23:50 Dose: 200 mls/hr Infusion: 06/23/18 18:50 Dose: 200 mls/hr Admin: 06/23/18 18:20 Dose: 200 mls/hr Infusion: 06/23/18 12:30 Dose: 200 mls/hr Admin: 06/23/18 12:00 Dose: 200 mls/hr Infusion: 06/23/18 07:08 Dose: 200 mls/hr Admin: 06/23/18 06:38 Dose: 200 mls/hr Infusion: 06/23/18 02:33 Dose: 200 mls/hr Admin: 06/23/18 02:03 Dose: 200 mls/hr Clindamycin Phosphate 900 mg/ (Premix) 50 mls @ 100 mls/hr IV Q8H [facility] Last Admin: 06/25/18 08:17 Dose: 100 mls/hr Infusion: 06/25/18 01:41 Dose: 100 mls/hr Admin: 06/25/18 01:11 Dose: 100 mls/hr Infusion: 06/24/18 17:38 Dose: 100 mls/hr Admin: 06/24/18 17:08 Dose: 100 mls/hr Infusion: 06/24/18 08:59 Dose: 100 mls/hr Admin: 06/24/18 08:29 Dose: 100 mls/hr Infusion: 06/24/18 01:23 Dose: 100 mls/hr Admin: 06/24/18 00:53 Dose: 100 mls/hr Infusion: 06/23/18 16:44 Dose: 100 mls/hr Admin: 06/23/18 16:14 Dose: 100 mls/hr Infusion: 06/23/18 09:29 Dose: 100 mls/hr Admin: 06/23/18 08:59 Dose: 100 mls/hr Infusion: 06/23/18 00:46 Dose: 100 mls/hr Admin: 06/23/18 00:16 Dose: 100 mls/hr Lactated Ringer's (Ringers, Lactated) 1,000 mls @ 125 mls/hr IV ASDIRECTED [facility] Last Admin: 06/25/18 03:40 Dose: 125 mls/hr Infusion: 06/25/18 00:16 Dose: 125 mls/hr Admin: 06/24/18 16:16 Dose: 125 mls/hr Infusion: 06/24/18 12:34 Dose: 125 mls/hr Admin: 06/24/18 04:34 Dose: 125 mls/hr Infusion: 06/24/18 03:34 Dose: 125 mls/hr Admin: 06/23/18 19:34 Dose: 125 mls/hr Infusion: 06/23/18 18:08 Dose: 125 mls/hr Admin: 06/23/18 10:08 Dose: 125 mls/hr Infusion: 06/23/18 08:55 Dose: 125 mls/hr Admin: 06/23/18 00:55 Dose: 125 mls/hr Gentamicin Sulfate 80 mg/ (Sodium Chloride) 52 mls @ 104 mls/hr IV Q8H [facility] Last Admin: 06/25/18 03:40 Dose: 104 mls/hr Infusion: 06/24/18 21:28 Dose: 104 mls/hr Admin: 06/24/18 20:58 Dose: 104 mls/hr Infusion: 06/24/18 12:03 Dose: 104 mls/hr Admin: 06/24/18 11:33 Dose: 104 mls/hr Infusion: 06/24/18 05:04 Dose: 104 mls/hr Admin: 06/24/18 04:34 Dose: 104 mls/hr Infusion: 06/23/18 22:14 Dose: 104 mls/hr Admin: 06/23/18 21:44 Dose: 104 mls/hr Ketorolac Tromethamine (Toradol) 30 mg IVPUSH Q6H PRN PRN Reason: Pain Stop: 06/27/18 23:57 Last Admin: 06/24/18 11:20 Dose: 30 mg Admin: 06/23/18 03:34 Dose: 30 mg Metoclopramide HCl (Reglan) 10 mg PO Q6H PRN PRN Reason: Nausea/Vomiting Morphine Sulfate (Morphine Sulfate) 4 mg IV Q2H PRN PRN Reason: Abdominal Pain Last Admin: 06/25/18 11:17 Dose: 4 mg Oxycodone/Acetaminophen (Percocet 325-5 Mg) 1 - 2 tab PO Q6H PRN PRN Reason: Abdominal Pain Last Admin: 06/25/18 12:25 Dose: 1 tab Admin: 06/25/18 03:40 Dose: 1 tab Admin: 06/24/18 20:57 Dose: 2 tab Admin: 06/24/18 13:21 Dose: 1 tab Sodium Chloride (Saline Flush) 10 ml FLUSH ASDIRECTED PRN PRN Reason: Keep Vein Open Sodium Chloride (Saline Flush) 2.5 ml FLUSH ASDIRECTED PRN PRN Reason: Keep Vein Open - Assessment Assessment (Free Text/Narrative):: Postoperative incisional hematoma Status post repeat c section x 3 - Plan Plan (Free Text/Narrative):: Vital signs remain stable, afebrile. Patient slept through the night and this morning. Pain is well controlled. Tolerating dressing changes. Feels ready to go home. Sister in law will help with twice daily dressing changes. Incision appears to be healing with erythema resolved and ecchymosis along vulva/mons regressing nicely. The drainage appears to be dissipating nicely. Follow up in clinic tomorrow for wound inspection, dressing change. Supplies sent with patient. To take zithromax daily for next week. Patient agrees to plan of care.
--- NOTE | 2018-06-25 12:54 | PCM.DCSUM1 ---
Discharge Summary - Hospital Course Free Text/Narrative:: See progress note from today HPI Initial Comments: POD 16 status post repeat c section x 3 with incisional hematoma - Discharge Data Discharge Date: 06/25/18 Discharge Disposition: Home, Self-Care 01 Condition: Fair - Discharge Diagnosis/Problem(s) (1) Postoperative hematoma SNOMED Code(s): 629997148 ICD Code: [id number] - Status: Acute Current Visit: Yes - Patient Summary/Data Consults: Consultations 06/22/18 23:23 Consult to Physician [CONS] Stat Recommended Follow-up Testing/Procedures: Follow up at [facility] tomorrow for wound care - Patient Instructions Diet: Regular Diet as Tolerated Activity: No Lifting Over 10 Pounds, No Strenuous Activities, Rest and Relax Today Showering/Bathing: May Shower Wound/Incision Care: Keep Operative Site/Wound Site Clean and Dry, Change Dressing Daily (twice daily dressing changes) Notify Provider of: Fever, Increased Pain, Swelling and Redness, Drainage ( increased), Nausea and/or Vomiting Other/Special Instructions: Take zithromax daily for next week. Wound care twice daily, did teaching with sister in law. Follow up in clinic once to twice weekly for monitoring of wound healing - Discharge Plan Prescriptions/Med Rec: Acetaminophen/oxyCODONE [Percocet 325-5 MG] 1 - 2 tab PO Q6H PRN #20 tablet PRN Reason: Abdominal Pain Azithromycin [Zithromax] 500 mg PO DAILY #7 tab Home Medications: Home Meds Vits #93/Iron Fum/FA [ Formula Tablet] 1 each PO DAILY [History] Ibuprofen 1 cap PO PRN 06/23/18 [History] Acetaminophen/oxyCODONE [Percocet 325-5 MG] 1 - 2 tab PO Q6H PRN #20 tablet [Rx] Azithromycin [Zithromax] 500 mg PO DAILY #7 tab 06/25/18 [Rx] Patient Handouts: Incision Care, Adult, [id number] Referrals: Nohemi Ford MD [Physician] - (Tuesday in clinic for wound care ) - Discharge Summary/Plan Comment DC Time >30 min.: No - Patient Data Vitals - Most Recent: Last Vital Signs Temp 36.3 C 06/25/18 11:00 Pulse 74 06/25/18 11:00 Resp 16 06/25/18 11:00 BP 121/66 06/25/18 11:00 Pulse Ox 98 06/25/18 11:00 Weight - Most Recent: 98.43 kg I&O - Last 24 hours: Intake & Output 06/24/18 06/25/18 06/25/18 22:59 06:59 14:59 Intake Total 1500 1200 Output Total 650 Balance 850 1200 Lab Results - Last 24 hrs: Laboratory Results - last 24 hr 06/24/18 Range/Units 19:22 WBC 9.28 (4.0-11.0) K/uL RBC 3.80 L (4.30-5.90) M/uL Hgb 10.8 L (12.0-16.0) g/dL Hct 33.5 L (36.0-46.0) % MCV 88.2 (80.0-98.0) fL MCH 28.4 (27.0-32.0) pg MCHC 32.2 (31.0-37.0) g/dL RDW Std Deviation 40.0 (28.0-62.0) fl RDW Coeff of Dinorah 12 (11.0-15.0) % Plt Count 395 (150-400) K/uL MPV 8.90 (7.40-12.00) fL Neutrophils % (Manual) 34 L (48.0-80.0) % Band Neutrophils % 1 % Lymphocytes % (Manual) 53 H (16.0-40.0) % Monocytes % (Manual) 5 (0.0-15.0) % Eosinophils % (Manual) 7 (0.0-7.0) % Nucleated RBC % 0.0 /100WBC Absolute Seg Neuts 3.2 (1.4-5.7) Band Neutrophils # 0.1 Lymphocytes # (Manual) 4.9 H (0.6-2.4) Monocytes # (Manual) 0.5 (0.0-0.8) Eosinophils # (Manual) 0.6 (0.0-0.7) SOFYA Results - Last 24 hrs: Microbiology 06/23/18 09:30 Wound Culture - Final Other - Abdomen Enterococcus Faecalis Skin [facility] Med Orders - Current: Current Medications Ampicillin Sodium 2 gm/ Sodium (Chloride) 100 mls @ 200 mls/hr IV Q6H [facility] Last Admin: 06/25/18 12:02 Dose: 200 mls/hr Clindamycin Phosphate 900 mg/ (Premix) 50 mls @ 100 mls/hr IV Q8H [facility] Last Admin: 06/25/18 08:17 Dose: 100 mls/hr Lactated Ringer's (Ringers, Lactated) 1,000 mls @ 125 mls/hr IV ASDIRECTED [facility] Last Admin: 06/25/18 03:40 Dose: 125 mls/hr Gentamicin Sulfate 80 mg/ (Sodium Chloride) 52 mls @ 104 mls/hr IV Q8H [facility] Last Admin: 06/25/18 03:40 Dose: 104 mls/hr Ketorolac Tromethamine (Toradol) 30 mg IVPUSH Q6H PRN PRN Reason: Pain Stop: 06/27/18 23:57 Last Admin: 06/24/18 11:20 Dose: 30 mg Metoclopramide HCl (Reglan) 10 mg PO Q6H PRN PRN Reason: Nausea/Vomiting Morphine Sulfate (Morphine Sulfate) 4 mg IV Q2H PRN PRN Reason: Abdominal Pain Last Admin: 06/25/18 11:17 Dose: 4 mg Oxycodone/Acetaminophen (Percocet 325-5 Mg) 1 - 2 tab PO Q6H PRN PRN Reason: Abdominal Pain Last Admin: 06/25/18 12:25 Dose: 1 tab Sodium Chloride (Saline Flush) 10 ml FLUSH ASDIRECTED PRN PRN Reason: Keep Vein Open Sodium Chloride (Saline Flush) 2.5 ml FLUSH ASDIRECTED PRN PRN Reason: Keep Vein Open Discontinued Medications Sodium Chloride (Normal Saline) 1,000 mls @ 999 mls/hr IV STAT ONE Stop: 06/22/18 22:46 Last Admin: 06/22/18 21:50 Dose: 999 mls/hr Iopamidol (Isovue Multipack-370 (76%)) 100 ml IVPUSH ONETIME STA Stop: 06/22/18 22:40 Last Admin: 06/22/18 22:39 Dose: 100 ml Meperidine HCl (Demerol) 75 mg IVPUSH ONETIME ONE Stop: 06/23/18 09:04 Last Admin: 06/23/18 09:20 Dose: 75 mg Meperidine HCl (Demerol) 75 mg IVPUSH ONETIME ONE Stop: 06/23/18 20:05 Last Admin: 06/23/18 20:20 Dose: 75 mg Morphine Sulfate (Morphine) 4 mg IVPUSH ONETIME ONE Stop: 06/22/18 21:47 Last Admin: 06/22/18 21:51 Dose: 4 mg Morphine Sulfate (Morphine) 4 mg IVPUSH Q2H PRN PRN Reason: Abdominal Pain Promethazine HCl (Phenergan) 25 mg IM ONETIME ONE Stop: 06/23/18 09:02 Last Admin: 06/23/18 09:22 Dose: 25 mg Promethazine HCl (Phenergan) 25 mg IM ONETIME ONE Stop: 06/23/18 20:06 Last Admin: 06/23/18 20:21 Dose: 25 mg Promethazine HCl (Phenergan) Confirm Administered Dose 25 mg .ROUTE .STK-MED ONE Stop: 06/23/18 20:18 Last Admin: 06/23/18 20:24 Dose: Not Given
== END 2018-06-25 14:50 | disposition home or self-care (01) ==
LOC: MW.ED 20:46 → MW.MS 06-23 00:01
PROVIDERS: ADMIT Obstetrics & Gynecology; ATTEND Obstetrics & Gynecology
DX: O90.2 Hematoma of obstetric wound (principal); Z79.2 Long term (current) use of antibiotics; Z79.899 Other long term (current) drug therapy
CPT/HCPCS: 36415; 74177; 80053; 85007; 85025; 85027; 87070; 87186; 96361; 96374; 96375; 99285; A9270; J0290; J1580; J1885; J2175; J2270; J2550; J3490; J7030; J7040; J7050; J7120; Q9967